=== PATIENT | female | born 1955 | race Caucasian/White ===

== ENCOUNTER → 2017-10-29 | Day surgery (SDC) | payer BC, MEDICARE ==
[~2017-10-29] MED LIST: LIDOCAINE 2% INJ (20 MG/ML) 20 ML MDV ONE
--- NOTE | 2017-10-31 16:15 | WOMENS IMAGING REPORT ---
EXAM DESCRIPTION: U/S BREAST BX; LEFT DIG DX MAMMO NO CHG COMPLETED DATE/TIME: 10/29/2017 11:21 am; 10/29/2017 2:33 pm REASON FOR STUDY: CALCS; R92.0; R92.0 LEFT S/P US BREAST BX R92.0 MAMMOGRAPHIC MICROCALCIFICATION F OUND ON DX IMAGING OF COMPARISON: Mammograms 10/01/2017 TECHNIQUE: Prior outside mammograms and ultrasound 10/01/2017 were reviewed. Patient has an area of architectural distortion and scattered microcalcifications along the upper inner quadrant of the righ t breast. Subtle sonographic abnormalities in the area of concern. Patient was referred for left br east biopsy. Because the patient is very small breasted, stereotactic sampling of the upper inner qu adrant left breast was deferred. Instead, ultrasound-guided core biopsy of subtle architectural dist ortion and faint hypoechoic density in the left upper inner quadrant was performed. The procedure was discussed with the patient and the patient agreed to proceed. The patient was scanned and the area of interest in the 10 to 11 o'clock position 5 cm from the nippl e of the left breast was localized. This correlates with the area of concern on prior imaging studie s. This area was targeted for ultrasound-guided core biopsy. After sterile skin prep and 2.0 mL local lidocaine 1% for skin and deep tissue anesthesia, a 14 gauge coaxial core biopsy needle was used to obtain several cores of tissue from the lesion. Under ultras ound guidance, a V clip (Gel-Foam marker) was placed in the areas sampled. There were no immediate post-procedure complications. PLEASE NOTE THAT DURING THE BIOPSY, THE THE PATIENT WAS NOT COOPERATIVE. The patient grabbed onto my left arm which was holding the ultrasound probe throughout the procedure. MAMMOGRAM: Post-procedure two view mammogram was acquired in the digital mammogram suite. The clip wa s in the expected location. No significant hematoma. Pathology yields a diagnosis of atypical glands. Fibrocystic and fibroadenoma disc changes. Benign intraductal microcalcifications. Pathology is discordant. I am concerned that the edge of the lesion was biopsied rather than the claudia ter. The patient is very reluctant to undergo rebiopsy. Perhaps she would be amenable to needle loc alization and excisional biopsy. LIMITATIONS: None. FINDINGS: Ultrasound guided breast biopsy as described above. POST PROCEDURE MAMMOGRAMS FOR MARKER PLACEMENT: Yes IMPRESSION: ULTRASOUND-GUIDED CORE BIOPSY OF THE LEFT BREAST YIELDS A DIAGNOSIS OF ATYPICAL GLANDULA R MATERIAL COMMENT: THIS WAS A TECHNICALLY CHALLENGING BIOPSY DUE TO LIMITED PATIENT COOPERATION AND SUBTLE SON OGRAPHIC FINDINGS. SHE HAS VERY SMALL BREASTS, MAMMOGRAPHIC ABNORMALITIES ARE IN THE DEEP UPPER INNE R QUADRANT LEFT BREAST AND WOULD LIKELY NOT FALL INTO THE FIELD OF VIEW OF THE STEREOTACTIC BIOPSY UN IT. CONSIDER NEEDLE LOCALIZATION AND EXCISIONAL BIOPSY OF THIS AREA. COMMUNICATION: Report discussed with DELIA Vera at Dr. Valdivia's office, [facility] Patient medication list reviewed: Yes- Quality ID# [id number]:Eligible professional attests to documenting i n the medical record they obtained, updated, or reviewed the patient's current medications. TECHNICAL DOCUMENTATION: JOB ID: [id number] [employer]- All Rights Reserved Reading location - IP/workstation name: [email or web address]-RR
== END ==
LOC: WI 09:31
PROVIDERS: ATTEND Surgery
DX: R92.0 Mammographic microcalcification found on diagnostic imaging of breast (principal); N60.12 Diffuse cystic mastopathy of left breast; D24.2 Benign neoplasm of left breast
CPT/HCPCS: 88342 ×2; 88305 ×2; 19083; J3490

== ENCOUNTER 2017-12-19 11:20 | Day surgery (SDC) | payer BC ==
--- NOTE | 2017-12-12 09:55 | EKG REPORT ---
SEVERITY:- BORDERLINE ECG - SINUS RHYTHM BORDERLINE T ABNORMALITIES, ANT-LAT LEADS : Confirmed by: Ginette Lin MD 12-Dec-2017 09:54:39
[2017-12-12 10:00] LABS: HEMATOCRIT 41.8 % (36.0-47.0); HEMOGLOBIN 14.3 g/dL (12.0-15.5); MEAN CORPUSCULAR HEMOGLOBIN 32.2 pg (27.0-33.4); MEAN CORPUSCULAR HGB CONC 34.1 g/dL (32.0-36.0); MEAN CORPUSCULAR VOLUME 94 fl (80-97); PLATELET COUNT 240 10^3/uL (150-450); RED BLOOD COUNT 4.43 10^6/uL (3.72-5.28); RED CELL DISTRIBUTION WIDTH 12.4 % (11.5-14.0); WHITE BLOOD COUNT 6.6 10^3/uL (4.0-10.5)
[2017-12-12 10:39] LABS: ANION GAP 9 (5-19); BLOOD UREA NITROGEN 16 mg/dL (7-20); CALCIUM 9.4 mg/dL (8.4-10.2); CARBON DIOXIDE 30 mmol/L (22-30); CHLORIDE 106 mmol/L (98-107); GLUCOSE 93 mg/dL (75-110); POTASSIUM 4.4 mmol/L (3.6-5.0); SODIUM 144.5 mmol/L (137-145)
--- NOTE | 2017-12-12 11:55 | RADIOLOGY REPORT (SQ) ---
EXAM DESCRIPTION: CHEST PA/LATERAL COMPLETED DATE/TIME: 12/12/2017 9:31 am REASON FOR STUDY: PRE OP COMPARISON: None. EXAM PARAMETERS: NUMBER OF VIEWS: two views TECHNIQUE: Digital Frontal and Lateral radiographic views of the chest acquired. RADIATION DOSE: NA LIMITATIONS: none FINDINGS: LUNGS AND PLEURA: No opacities, masses or pneumothorax. No pleural effusion. MEDIASTINUM AND HILAR STRUCTURES: No masses or contour abnormalities. HEART AND VASCULAR STRUCTURES: Heart normal size. No evidence for failure. BONES: No acute findings. HARDWARE: None in the chest. OTHER: No other significant finding. IMPRESSION: NO SIGNIFICANT RADIOGRAPHIC FINDING IN THE CHEST. TECHNICAL DOCUMENTATION: JOB ID: [id number] [employer]- All Rights Reserved Reading location - IP/workstation name: [email or web address]
[~2017-12-19 11:20] MED LIST changes: +CEFAZOLIN 2 GM/D5W RTU 2 GM/50 ML RTUPB IV PRN; +LACTATED RINGERS 1000 ML IV PRN; +LIDOCAINE 0.5% INJ-PF (5 MG/ML) 50 ML SDV SUBCUT PRN; +LIDOCAINE 1% INJ (10 MG/ML) 10 ML MDV ONE; -LIDOCAINE 2% INJ (20 MG/ML) 20 ML MDV ONE
[2017-12-19] MEDS ORDERED: MIDAZOLAM 2 MG/2 ML INJ ONE ×2 (12:54→13:41)
[2017-12-19] MEDS ORDERED: PROPOFOL INJ 200 MG/20 ML VIAL IV ONE (12:54)
[2017-12-19] MEDS ORDERED: FENTANYL CITRATE INJ/PF 100 MCG/2 ML AMPUL ONE ×2 (12:54→15:39)
[2017-12-19] MEDS ORDERED: RINGERS SOLUTION,LACTATED 1,000 ML IV PRN (13:45)
[2017-12-19] MEDS ORDERED: RINGERS SOLUTION,LACTATED 500 ML IV PRN (13:45)
[2017-12-19] MEDS ORDERED: PROMETHAZINE HCL INJ 25 MG/1 ML VIAL IV PRN ×2 (14:25)
[2017-12-19] MEDS ORDERED: FENTANYL CITRATE INJ/PF 100 MCG/2 ML AMPUL IV PRN ×3 (14:25)
[2017-12-19] MEDS ORDERED: DIPHENHYDRAMINE HCL 50 MG/ML VIAL IV PRN (14:25)
[2017-12-19] MEDS ORDERED: MORPHINE SULFATE 10 MG/ML INJ IV PRN (14:25)
[2017-12-19] MEDS ORDERED: OXYCODONE-ACETAMINOPHEN 5-325 MG TABLET PO PRN ×2 (14:25)
[2017-12-19] MEDS ORDERED: BUPIVACAINE HCL 0.5 % INJ/PF 30 ML SDV ONE (14:42)
[2017-12-19] MEDS ORDERED: HYDROCODONE/ACETAMINOPHEN 5-325 MG TABLET PO PRN (15:36)
--- NOTE | 2017-12-19 15:47 | Operative Report ---
Nonrecallable Operative Report DATE OF SURGERY: 12/19/17 PREOPERATIVE DIAGNOSIS: Suspicious left breast mass POSTOPERATIVE DIAGNOSIS: Same as above OPERATION: Needle localization left breast lumpectomy SURGEON: ANDREW FIORE ANESTHESIA: LMAC TISSUE REMOVED OR ALTERED: Left breast lumpectomy COMPLICATIONS: None apparent ESTIMATED BLOOD LOSS: 10 cc PROCEDURE: Indication for the procedure: This is a 62-year-old female with a suspicious lesion in the left breast, found on mammogram. The patient underwent percutaneous breast biopsy however she could not tolerate the pain of the procedure. Secondary to this, the amount of tissue obtained was small and a definitive diagnosis could not be secured. The patient is in need of excisional biopsy to secure a diagnosis. Procedure in detail: After informed consent was obtained, the patient was brought to the operating room and laid in the supine position. The area of the left breast, chest, and axilla were prepped and draped in a normal sterile fashion. The wire was noted to be in place. A curvilinear incision was created inferior to the wire. The wire was then pulled into the incision. The breast tissue surrounding the localization wire was excised using Bovie electrocautery. The wire extended down to the chest wall. The generous lumpectomy was excised from the remaining breast and elevated off the chest wall. Hemostasis was achieved using Bovie electrocautery and 3-0 Vicryl suture. The specimen was removed. The specimen was marked with 2 short stitch is superior, 2 long stitch is lateral, and one short/one long stitch anterior. The specimen was then sent to pathology. The subcutaneous tissue was closed using 3-0 Vicryl suture in simple interrupted fashion. The overlying skin was closed using 4-0 Vicryl Rapide suture in subcuticular fashion. Dressings were placed, and the procedure was concluded. All sponge, instrument, needle counts were correct 2. Condition: Stable.
[2017-12-19] MEDS ORDERED: KETOROLAC TROMETHAMINE INJ/PF 30 MG/1 ML SDV ONE (15:48)
[2017-12-19] MEDS ORDERED: ACETAMINOPHEN 1,000 MG/100 ML RTUPB IV ONE (15:48)
--- NOTE | 2017-12-19 15:58 | Discharge Summary ---
Discharge Summary (SDC) - Discharge Final Diagnosis: Left breast mass, unsuccessful percutaneous biopsy Date of Surgery: 12/19/17 Discharge Date: 12/19/17 Forms: ASU Anesthesia D/C Instruction, Discharge POC-Surgical Service Treatment or Instructions: Discharge home. Diet as tolerated. Activity: Nonstrenuous. Leave Edmund wrap in place until Friday. On Friday, she may remove the Edmund wrap and shower normally. Wash incisions with soap and water. No tub baths or swimming 2 weeks. After Edmund wrap is off, wear supportive bra 24 hours per day (unless showering). Follow-up with me in 7-10 days. Referrals: ANDREW FIORE MD [ACTIVE STAFF] - 12/29/17 8:00 am Discharge Diet: As Tolerated Respiratory Treatments at Home: Deep Breathing/Coughing, Incentive Spirometer Discharge Activity: Slowly Increase Activity Home Care Assistance: None Needed Report the Following to Your Physician Immediately: Shortness of Breath, Nausea , Vomiting, Increase in Pain, Fever over 101 Degrees, Unusual Bleeding, Redness , Swelling, Warmth
[2017-12-19] MEDS ORDERED: HYDROCODONE/ACETAMINOPHEN 5-325 MG TABLET ONE (16:25)
[2017-12-19 17:32] VITALS: BP 127/74
== END 2017-12-19 17:25 | disposition home or self-care (01) ==
LOC: OROUT 11:20
PROVIDERS: ATTEND Surgery
DX: C50.812 Malignant neoplasm of overlapping sites of left female breast (principal); F32.9 Major depressive disorder, single episode, unspecified; Z87.891 Personal history of nicotine dependence; Z79.899 Other long term (current) drug therapy
CPT/HCPCS: 93010; 93005; 36415; 85027; 80048; 88342 ×2; 88341 ×2; 88307 ×2; 71046; 19281; 19301; J2250; J3490; J3010; J1885; J2704; J0690; J0131; 400

== ENCOUNTER 2018-01-23 11:06 | Day surgery (SDC) | payer BC ==
[2018-01-12 10:48] LABS: HEMATOCRIT 42.9 % (36.0-47.0); HEMOGLOBIN 14.7 g/dL (12.0-15.5); MEAN CORPUSCULAR HEMOGLOBIN 32.5 pg (27.0-33.4); MEAN CORPUSCULAR HGB CONC 34.2 g/dL (32.0-36.0); MEAN CORPUSCULAR VOLUME 95 fl (80-97); PLATELET COUNT 234 10^3/uL (150-450); RED BLOOD COUNT 4.51 10^6/uL (3.72-5.28); RED CELL DISTRIBUTION WIDTH 12.6 % (11.5-14.0); WHITE BLOOD COUNT 6.9 10^3/uL (4.0-10.5)
[2018-01-12 11:14] LABS: ALANINE AMINOTRANSFERASE 21 U/L (9-52); ALBUMIN 4.5 g/dL (3.5-5.0); ALKALINE PHOSPHATASE 80 U/L (38-126); ANION GAP 9 (5-19); ASPARTATE AMINO TRANSFERASE 22 U/L (14-36); BILIRUBIN,DIRECT 0.3 mg/dL (0.0-0.4); BILIRUBIN,TOTAL 0.6 mg/dL (0.2-1.3); BLOOD UREA NITROGEN 13 mg/dL (7-20); CALCIUM 9.8 mg/dL (8.4-10.2); CARBON DIOXIDE 27 mmol/L (22-30); CHLORIDE 106 mmol/L (98-107); GLUCOSE 86 mg/dL (75-110); POTASSIUM 4.5 mmol/L (3.6-5.0); SODIUM 142.2 mmol/L (137-145); TOTAL PROTEIN 7.7 g/dL (6.3-8.2)
[~2018-01-23 11:06] MED LIST changes: -CEFAZOLIN 2 GM/D5W RTU 2 GM/50 ML RTUPB IV PRN; +GLYCOPYRROLATE 1 MG/5 ML SYRINGE ONE; -LIDOCAINE 1% INJ (10 MG/ML) 10 ML MDV ONE
[2018-01-23] MEDS ORDERED: METHYLENE BLUE 50 MG/10 ML AMPULE ONE (12:10)
[2018-01-23] MEDS ORDERED: BUPIVACAINE HCL 0.5 % INJ/PF 30 ML SDV ONE (12:10)
[2018-01-23] MEDS ORDERED: CEFAZOLIN 1 GM/D5W RTU 1 GM/50 ML RTUPB IV ONE ×2 (13:00)
[2018-01-23] MEDS ORDERED: ONDANSETRON HCL INJ/PF 4 MG/2 ML SDV ONE (13:07)
[2018-01-23] MEDS ORDERED: FENTANYL CITRATE INJ/PF 100 MCG/2 ML AMPUL ONE ×2 (13:07→16:44)
[2018-01-23] MEDS ORDERED: MIDAZOLAM 2 MG/2 ML INJ ONE ×2 (13:07→13:26)
[2018-01-23] MEDS ORDERED: ACETAMINOPHEN 1,000 MG/100 ML RTUPB IV ONE (13:07)
[2018-01-23] MEDS ORDERED: EPHEDRINE SULFATE INJ 50 MG/1 ML AMPULE ONE (13:07)
[2018-01-23] MEDS ORDERED: DEXAMETHASONE SOD PHOSPHATE INJ 4 MG/1 ML VIAL ONE (13:07)
[2018-01-23] MEDS ORDERED: PROPOFOL INJ 200 MG/20 ML VIAL IV ONE ×2 (13:07→13:49)
[2018-01-23] MEDS ORDERED: KETAMINE HCL INJ 500 MG/10 ML VIAL ONE (13:59)
[2018-01-23] MEDS ORDERED: LIDOCAINE 1% INJ-PF (10 MG/ML) 30 ML SDV ONE (14:00)
[2018-01-23] MEDS ORDERED: DIPHENHYDRAMINE HCL 50 MG/ML VIAL IV PRN (14:21)
[2018-01-23] MEDS ORDERED: ONDANSETRON HCL INJ/PF 4 MG/2 ML SDV IV PRN (14:21)
[2018-01-23] MEDS ORDERED: MEPERIDINE HCL/PF INJ 25 MG/1 ML DISP.SYRIN IV PRN (14:21)
[2018-01-23] MEDS ORDERED: OXYCODONE-ACETAMINOPHEN 5-325 MG TABLET PO PRN ×2 (14:21)
[2018-01-23] MEDS ORDERED: MORPHINE SULFATE 10 MG/ML INJ IV PRN (14:21)
[2018-01-23] MEDS ORDERED: PROMETHAZINE HCL INJ 25 MG/1 ML VIAL IV PRN ×2 (14:21)
[2018-01-23] MEDS ORDERED: FENTANYL CITRATE INJ/PF 100 MCG/2 ML AMPUL IV PRN ×3 (14:21)
--- NOTE | 2018-01-23 14:36 | RADIOLOGY REPORT (SQ) ---
EXAM DESCRIPTION: NM INJECT LYMPH GLAND IMAGING COMPLETED DATE/TIME: 01/23/2018 2:29 pm REASON FOR STUDY: BREAST CANCER (INJECT ONLY, NO SCAN - DR. MANLEY/SAFELY) C50.912 MALIGNANT COSMO PLASM OF UNSPECIFIED SITE OF LEFT FEMAL COMPARISON: None. RADIONUCLIDE AND DOSE: 559 microcuries TC-99m tilmanocept - Lymphoseek. The route of agent administration: Subcutaneous in the skin. TECHNIQUE: The skin of the left breast was prepped in sterile fashion. The radiopharmaceutical was administered in equally divided doses in the periareolar breast. LIMITATIONS: None. FINDINGS: No images acquired. IMPRESSION: ADMINISTRATION OF RADIOPHARMACEUTICAL FOR SENTINEL LYMPH NODE EVALUATION. TECHNICAL DOCUMENTATION: JOB ID: [id number] [employer]- All Rights Reserved Reading location - IP/workstation name: [email or web address]
[2018-01-23] MEDS ORDERED: HYDROCODONE/ACETAMINOPHEN 10-325 MG TABLET ONE (17:32)
[2018-01-23 19:19] VITALS: BP 131/82
--- NOTE | 2018-01-26 14:31 | RADIOLOGY REPORT (SQ) ---
EXAM DESCRIPTION: NM INJECT LYMPH GLAND IMAGING COMPLETED DATE/TIME: 01/26/2018 1:18 pm REASON FOR STUDY: BREAST LT C50.912 MALIGNANT NEOPLASM OF UNSPECIFIED SITE OF LEFT FEMAL COMPARISON: Mammograms 12/19/2017, 10/29/2017 RADIONUCLIDE AND DOSE: 559 microcuries TC-99m tilmanocept - Lymphoseek. The route of agent administration: Subcutaneous in the skin. TECHNIQUE: The skin of the left was prepped in sterile fashion. The radiopharmaceutical was adminis tered intradermal periareolar left breast for sentinel node localization in the OR by Dr. Valdivia LIMITATIONS: None. FINDINGS: The radiopharmaceutical was administered intradermal periareolar left breast for sentinel node localization in the OR by Dr. Valdivia IMPRESSION: ADMINISTRATION OF RADIOPHARMACEUTICAL FOR SENTINEL LYMPH NODE EVALUATION. TECHNICAL DOCUMENTATION: JOB ID: [id number] [employer]- All Rights Reserved Reading location - IP/workstation name: [email or web address]
--- NOTE | 2018-01-27 07:58 | Discharge Summary ---
Discharge Summary (SDC) - Discharge Final Diagnosis: breast cancer, left Date of Surgery: 01/23/18 Discharge Date: 01/23/18 Condition: Stable Forms: ASU Anesthesia D/C Instruction, Discharge POC-Surgical Service Treatment or Instructions: CONTINUE HOME MEDS SCHEDULED TAKE NORCO DIRECTED FOR PAIN NON-STRENUOUS ACTIVITY UNTIL FOLLOW UP WEAR ALYSHA WRAP FOR 48 HOURS THEN REMOVE AND OK TO SHOWER NO TUB BATHS OR SWIMMING FOR 2 WEEKS CALL TO SCHEDULE FOLLOW UP FOR 7-10 DAYS CALL CLINIC WITH ANY QUESTIONS OR CONCERNS Referrals: ANDREW FIORE MD [ACTIVE STAFF] - Discharge Diet: As Tolerated Respiratory Treatments at Home: Deep Breathing/Coughing Discharge Activity: Balance Activity w/Rest, No Lifting Over 10 Pounds Home Care Assistance: None Needed Report the Following to Your Physician Immediately: Shortness of Breath, Nausea , Vomiting, Fever over 101 Degrees, Unusual Bleeding, Redness, Swelling, Warmth , Drainage-Foul Smelling
--- NOTE | 2018-01-27 09:59 | Operative Report ---
Nonrecallable Operative Report DATE OF SURGERY: 01/23/18 PREOPERATIVE DIAGNOSIS: Left breast cancer POSTOPERATIVE DIAGNOSIS: Same as above OPERATION: 1. Reexcision of left breast cancer biopsy/lumpectomy site. 2. Brooks lymph node biopsy, left axilla. SURGEON: ANDREW FIORE ANESTHESIA: LMAC TISSUE REMOVED OR ALTERED: 1. Reexcision of left breast biopsy/lumpectomy site. 2. Brooks lymph node biopsy area. 3. Additional axillary tissue. COMPLICATIONS: None apparent ESTIMATED BLOOD LOSS: 25 cc PROCEDURE: Drains/implants: None. Procedure in detail: After informed consent was obtained, the patient was brought into the operating room and laid in the supine position. Radiology was then present in order to inject radiotracer into the left breast in the periareolar region, intradermally. After this was completed, methylene blue was injected into the left breast by me under sterile conditions. This was done in 4 quadrants in periareolar fashion, intradermally. Once this was completed, the left breast, left axilla, and left arm were prepped and draped in a normal sterile fashion. Attention was turned to reexcision of the left breast lumpectomy site. A 15 blade scalpel was used to completely excise the previous surgical scar. Next, electrocautery was used to completely excise the cavity/left breast lumpectomy site. Once the entire lumpectomy site was reexcised, the specimen was marked. Short stitch superior, long stitch lateral, one long/one short anterior. The specimen was passed off the field, and sent to pathology. The subcutaneous tissue was closed using 3-0 Vicryl suture in simple interrupted fashion. The overlying skin was closed using 4-0 Vicryl Rapide suture in subcuticular fashion. Attention was then turned to the sentinel lymph node dissection. The instruments used for the previous dissection were abandoned, and new instruments were opened. The gamma probe was used to doug the area of diffusion on the left breast. An obvious hot spot was identified in the left axilla. An oblique incision was created within a fold, inside the axilla. Dissection was carried down through the subcutaneous tissue using a mixture of sharp dissection, blunt dissection, and electrocautery. The sentinel lymph node was identified with the help of the gamma probe as well as blue staining. This cluster of lymph nodes was removed using hemoclips and sharp dissection. An ex vivo 10-second count was performed. The count showed a level of 4444. The axilla was reexamined with the gamma probe. No obvious second hot spot could be identified. A background count was performed and measured at 210. The background count was less than 10% of the sentinel lymph node, confirming there were no other sentinel nodes. The axilla was irrigated and suctioned. The subcutaneous tissue was closed using 3-0 Vicryl suture in simple interrupted fashion. The overlying skin was closed using 4-0 Vicryl Rapide suture in subcuticular fashion. A dressing was placed, and the procedure was concluded. All sponge, instrument, and needle counts were correct x2. Condition: Stable.
== END 2018-01-23 18:45 | disposition home or self-care (01) ==
LOC: OROUT 11:06
PROVIDERS: ATTEND Surgery
DX: C50.912 Malignant neoplasm of unspecified site of left female breast (principal); F17.210 Nicotine dependence, cigarettes, uncomplicated; F32.9 Major depressive disorder, single episode, unspecified; Z79.899 Other long term (current) drug therapy; Z01.818 Encounter for other preprocedural examination
CPT/HCPCS: 36415; 85027; 80053; 88342 ×2; 88341 ×2; 88305 ×2; 88307 ×2; 38792; 19301; 38500; J2250; J3490 ×4; J0690; J1100; J3010; J2405; J2704; J0131; Q9968; 1610; 78195; A9520

== ENCOUNTER → 2018-03-03 | Outpatient (CLI) | payer BC ==
[2018-03-03 15:45] LABS: ABSOLUTE EOSINOPHILS # (AUTO) 0.1 10^3/uL (0.0-0.6); ABSOLUTE LYMPHOCYTES (AUTO) 1.9 10^3/uL (0.5-4.7); ABSOLUTE MONOCYTES (AUTO) 0.5 10^3/uL (0.1-1.4); ABSOLUTE NEUT (AUTO) 5.6 10^3/uL (1.7-8.2); BASOPHILS % (AUTO) 0.3 % (0-2); EOSINOPHILS % (AUTO) 0.9 % (0-6); HEMATOCRIT 40.7 % (36.0-47.0); HEMOGLOBIN 14.2 g/dL (12.0-15.5); LYMPHOCYTES % (AUTO) 23.6 % (13-45); MEAN CORPUSCULAR HEMOGLOBIN 32.8 pg (27.0-33.4); MEAN CORPUSCULAR HGB CONC 34.8 g/dL (32.0-36.0); MEAN CORPUSCULAR VOLUME 94 fl (80-97); MONOCYTES % (AUTO) 5.8 % (3-13); PLATELET COUNT 233 10^3/uL (150-450); RED BLOOD COUNT 4.33 10^6/uL (3.72-5.28); RED CELL DISTRIBUTION WIDTH 12.5 % (11.5-14.0); SEGMENTED NEUTROPHILS % (AUTO) 69.4 % (42-78); TOTAL CELLS COUNTED % (AUTO) 100 %
[2018-03-03 15:59] LABS: ALANINE AMINOTRANSFERASE 17 U/L (9-52); ALBUMIN 3.9 g/dL (3.5-5.0); ALKALINE PHOSPHATASE 74 U/L (38-126); ASPARTATE AMINO TRANSFERASE 18 U/L (14-36); BILIRUBIN,DIRECT 0.2 mg/dL (0.0-0.4); BILIRUBIN,TOTAL 0.6 mg/dL (0.2-1.3); TOTAL PROTEIN 6.5 g/dL (6.3-8.2)
== END ==
LOC: OD 14:35
PROVIDERS: ATTEND Radiology Radiation Oncology
DX: C50.212 Malignant neoplasm of upper-inner quadrant of left female breast (principal); Z17.0 Estrogen receptor positive status [ER+]; Z79.899 Other long term (current) drug therapy
CPT/HCPCS: 36415; 80076; 85025

== ENCOUNTER → 2018-04-20 | Outpatient (CLI) | payer BC ==
--- NOTE | 2018-04-20 10:06 | WOMENS IMAGING REPORT ---
EXAM DESCRIPTION: BONE DENSITY HIP/SPINE COMPLETED DATE/TIME: 04/20/2018 9:48 am REASON FOR STUDY: M81.0 AGE-RELATED OSTEOPOROSIS WITHOUT CURRENT PATHOLOGICAL FRACTURE M81.0 AGE-RE LATED OSTEOPOROSIS W/O CURRENT PATHOLOGICAL FRAC COMPARISON: None. TECHNIQUE: Dual-Energy X-ray Absorptiometry (DEXA) of the AP Spine and Hip. LIMITATIONS: None. FINDINGS: LUMBAR SPINE: The bone mineral density (BMD) measured from L1-L4 in the AP projection correlates with a T-score of -2.8, which is osteoporotic as defined by the World Health Organization. HIP: The bone mineral density (BMD) measured in the left total hip correlates with a T-score of -2.1, whic h is osteopenic as defined by the World Health Organization. IMPRESSION: 1. LUMBAR SPINE: Osteoporotic 2. HIP: Osteopenic COMMENT: The World Health Organization defines low BMD as follows: T-score: Normal: Greater than -1.0 Osteopenia: Between -1.0 and -2.5 Osteoporosis: Less than -2.5 without fractures Established osteoporosis: Less than -2.5 with fractures In general, you may wish to consider: Diagnosis Treatment Follow-up DEXA Normal BMD Prevention 2-3 years Osteopenia Prevention/Therapy 1-2 years Osteoporosis Therapy Yearly TECHNICAL DOCUMENTATION: JOB ID: [id number] [employer]- All Rights Reserved Reading location - IP/workstation name: [email or web address]
== END ==
LOC: WI 09:30
PROVIDERS: ATTEND Internal Medicine Hematology & Oncology
DX: M81.0 Age-related osteoporosis without current pathological fracture (principal)
CPT/HCPCS: 77080

== ENCOUNTER → 2018-06-23 | Outpatient (CLI) | payer BC | LOC: WI 10:37 | PROVIDERS: ATTEND Internal Medicine Hematology & Oncology | DX: C50.212 Malignant neoplasm of upper-inner quadrant of left female breast (principal) ==

== ENCOUNTER → 2018-12-22 | Outpatient (CLI) | payer BC ==
--- NOTE | 2018-12-22 11:20 | WOMENS IMAGING REPORT ---
EXAM DESCRIPTION: BILAT DIAGNOSTIC MAMMO W/CAD COMPLETED DATE/TIME: 12/22/2018 10:44 am REASON FOR STUDY: C50.912 MALIGNANT NEOPLASM OF UNSPECIFIED SITE OF LEFT FEMALE BREAST C50.912 KAYLA GNANT NEOPLASM OF UNSPECIFIED SITE OF LEFT FEMAL COMPARISON: Multiple since October 2017 EXAM PARAMETERS: Standard craniocaudal and mediolateral oblique views of each breast recorded using digital acquisition. Additional left breast 90 mediolateral view compression magnification views of the lumpectomy site i n the upper inner quadrant left breast. Read with the assistance of CAD: .[facility] - [employer] Client Delivery Specialist Version 9.2 LIMITATIONS: None. FINDINGS: RIGHT BREAST MASSES: No suspicious masses. CALCIFICATIONS: No new or suspicious calcifications. ARCHITECTURAL DISTORTION: None. DEVELOPING DENSITY: None. ASYMMETRY: None noted. OTHER: No other significant findings. LEFT BREAST MASSES: No suspicious masses. CALCIFICATIONS: No new or suspicious calcifications. ARCHITECTURAL DISTORTION: Postoperative architectural distortion present in the upper inner quadrant left breast. DEVELOPING DENSITY: None. ASYMMETRY: None noted. OTHER: Left breast skin thickening post radiation therapy. Left axillary surgical clips are also pre sent. IMPRESSION: No mammographic evidence for malignancy right breast. Post therapeutic changes left breast. No mammographic findings worrisome for recurrent malignancy BREAST DENSITY: b. There are scattered areas of fibroglandular density. BIRAD: ASSESSMENT: 2 Benign findings. RECOMMENDATION: RECOMMENDED FOLLOW UP: Please continue yearly diagnostic mammography in December 2019 SPECIFIC INTERVENTION/IMAGING/CONSULTATION RECOMMENDED:No additional intervention/ imaging/consultati on needed at this time. COMMUNICATION:Patient notified by letter COMMENT: The patient has been notified of the results by letter per MQSA requirements. Additional no tification policies are in place for contacting patient with suspicious or incomplete findings. Quality ID #225: The [employer] recommends an annual screening mammogram for women aged 40 years or over. This facility utilizes a reminder system to ensure that all patients receive reminder letters, and/or direct phone calls for appointments. This includes reminders for routine scr eening mammograms, diagnostic mammograms, or other Breast Imaging Interventions when appropriate. Th is patient will be placed in the appropriate reminder system. TECHNICAL DOCUMENTATION: FINDING NUMBER: (1) ASSESSMENT: (1) JOB ID: [id number] [employer]- All Rights Reserved Reading location - IP/workstation name: [facility]
== END ==
LOC: WI 10:33
PROVIDERS: ATTEND Internal Medicine Hematology & Oncology
DX: C50.912 Malignant neoplasm of unspecified site of left female breast (principal)
CPT/HCPCS: 77066

== ENCOUNTER → 2019-12-27 | Outpatient (CLI) | payer BC ==
--- NOTE | 2019-12-27 11:35 | WOMENS IMAGING REPORT ---
EXAM DESCRIPTION: BILAT DIAGNOSTIC MAMMO W/CAD IMAGES COMPLETED DATE/TIME: 12/27/2019 10:26 am REASON FOR STUDY: C50.212 MALIGNANT NEOPLASM OF UPPER-INNER QUADRANT OF LEFT FEMALE BREAST C50.212 MALIG NEOPLASM OF UPPER-INNER QUADRANT OF LEFT FEMAL COMPARISON: 2018 EXAM PARAMETERS: Standard craniocaudal and mediolateral oblique views of each breast recorded using digital acquisition. True lateral and magnification views left breast. Read with the assistance of CAD: .[facility] - [employer] Finisher And Stuffer Version 9.2 LIMITATIONS: None. FINDINGS: RIGHT BREAST MASSES: No suspicious masses. CALCIFICATIONS: No new or suspicious calcifications. ARCHITECTURAL DISTORTION: None. ASYMMETRY: None noted. OTHER: No other significant findings. LEFT BREAST MASSES: No suspicious masses. CALCIFICATIONS: No new or suspicious calcifications. ARCHITECTURAL DISTORTION: Old left lumpectomy changes. ASYMMETRY: None noted. OTHER: No other significant finding. IMPRESSION: Stable mammographic pattern. BREAST DENSITY: b. There are scattered areas of fibroglandular density. BIRAD: ASSESSMENT: 2 Benign findings. RECOMMENDATION: RECOMMENDED FOLLOW UP: Annual mammographic follow-up. SPECIFIC INTERVENTION/IMAGING/CONSULTATION RECOMMENDED:No additional intervention/ imaging/consultati on needed at this time. COMMUNICATION:The imaging findings were not discussed with the patient. Her referring provider has be en notified of the findings. COMMENT: The patient has been notified of the results by letter per SA requirements. Additional no tification policies are in place for contacting patient with suspicious or incomplete findings. Quality ID #225: The [employer] recommends an annual screening mammogram for women aged 40 years or over. This facility utilizes a reminder system to ensure that all patients receive reminder letters, and/or direct phone calls for appointments. This includes reminders for routine scr eening mammograms, diagnostic mammograms, or other Breast Imaging Interventions when appropriate. Th is patient will be placed in the appropriate reminder system. TECHNICAL DOCUMENTATION: FINDING NUMBER: (1) ASSESSMENT: (1) JOB ID: [id number] [employer]- All Rights Reserved Reading location - IP/workstation name: [email or web address]
== END ==
LOC: WI 09:28
PROVIDERS: ATTEND Physician Assistant Medical
DX: C50.212 Malignant neoplasm of upper-inner quadrant of left female breast (principal)
CPT/HCPCS: 77066

== ENCOUNTER → 2020-05-02 | Outpatient (CLI) | payer BC ==
--- NOTE | 2020-05-02 11:22 | WOMENS IMAGING REPORT ---
EXAM DESCRIPTION: BONE DENSITY HIP/SPINE IMAGES COMPLETED DATE/TIME: 05/02/2020 8:20 am REASON FOR STUDY: M81.0 M81.0 AGE-RELATED OSTEOPOROSIS W/O CURRENT PATHOLOGICAL FRAC COMPARISON: 04/20/2018 TECHNIQUE: Dual-Energy X-ray Absorptiometry (DEXA) of the AP Spine and Hip. LIMITATIONS: None. FINDINGS: LUMBAR SPINE: The bone mineral density (BMD) measured from L1-L4 in the AP projection correlates with a T-score of -2.5, which is osteoporosis as defined by the World Health Organization. BMD Change vs Baseline: 5% improvement HIP: The bone mineral density (BMD) measured in the left hip correlates with a T-score of -1.5, which is o steopenia as defined by the World Health Organization. BMD Change vs Baseline: 10% improvement 10 year Fracture Risk Assessment: Major Osteoporotic Fracture: Not available. Hip Fracture: Not available. IMPRESSION: 1. LUMBAR SPINE WHO CLASSIFICATION: OSTEOPOROSIS. 2. HIP WHO CLASSIFICATION: OSTEOPENIA. OVERALL ASSESSMENT: WHO CLASSIFICATION: OSTEOPOROSIS. COMMENT: The World Health Organization defines low BMD as follows: T-score: Normal: At or above -1.0 Osteopenia: Between -1.0 and -2.5 Osteoporosis: At or below -2.5 without fractures Established osteoporosis: At or below -2.5 with fractures In general, you may wish to consider: Diagnosis Treatment Follow-up DEXA Normal BMD Prevention 2-3 years Osteopenia Prevention/Therapy 1-2 years Osteoporosis Therapy Yearly TECHNICAL DOCUMENTATION: JOB ID: [id number] [employer]- All Rights Reserved Reading location - IP/workstation name: [email or web address]
== END ==
LOC: WI 08:00
PROVIDERS: ATTEND Nurse Practitioner Family
DX: M81.0 Age-related osteoporosis without current pathological fracture (principal)
CPT/HCPCS: 77080